=== PATIENT | female | born 1960 | race Caucasian/White ===

== ENCOUNTER → 2023-09-11 08:01 | Outpatient (REF) | payer OTHER, SELFPAY | LOC: HWRAD 08:01 | PROVIDERS: ATTENDING PHYSICIAN Nurse Practitioner | DX: Z12.31 Encounter for screening mammogram for malignant neoplasm of breast (principal); R22.9 Localized swelling, mass and lump, unspecified | CPT/HCPCS: 76882; 77063; 77067 ==

== ENCOUNTER → 2023-10-16 11:30 | Outpatient (REF) | payer OTHER, SELFPAY | LOC: MRI 3T 11:30 | PROVIDERS: ATTENDING PHYSICIAN Nurse Practitioner; FAMILY PHYSICIAN Internal Medicine | DX: R22.9 Localized swelling, mass and lump, unspecified (principal) | CPT/HCPCS: 73721 ==

== ENCOUNTER → 2024-03-16 12:01 | Outpatient (REF) | payer OTHER, SELFPAY | LOC: HWRAD 12:01 | PROVIDERS: ATTENDING PHYSICIAN Internal Medicine | DX: M25.50 Pain in unspecified joint (principal) | CPT/HCPCS: 73130 ==

== ENCOUNTER → 2024-03-27 16:19 | Outpatient (REF) | payer OTHER, SELFPAY | LOC: HWRAD 16:19 | PROVIDERS: ATTENDING PHYSICIAN Student in an Organized Health Care Education/Training Program | DX: M25.50 Pain in unspecified joint (principal); M79.89 Other specified soft tissue disorders | CPT/HCPCS: 73120 ==

== ENCOUNTER → 2024-11-17 09:08 | Outpatient (REF) | payer OTHER, SELFPAY | LOC: HWWDC 09:08 | DX: Z12.31 Encounter for screening mammogram for malignant neoplasm of breast (principal) | CPT/HCPCS: 77063; 77067 ==

== ENCOUNTER → 2025-01-08 16:41 | Outpatient (REF) | payer OTHER, SELFPAY | LOC: RAD 16:41 | PROVIDERS: ATTENDING PHYSICIAN Student in an Organized Health Care Education/Training Program | DX: E55.9 Vitamin D deficiency, unspecified (principal); I73.00 Raynaud's syndrome without gangrene; K13.0 Diseases of lips; K21.9 Gastro-esophageal reflux disease without esophagitis; M25.50 Pain in unspecified joint; M25.60 Stiffness of unspecified joint, not elsewhere classified; M79.89 Other specified soft tissue disorders; N96 Recurrent pregnancy loss; R05.3 Chronic cough; R21 Rash and other nonspecific skin eruption; R22.42 Localized swelling, mass and lump, left lower limb; R53.83 Other fatigue; R68.2 Dry mouth, unspecified; R76.89 Other specified abnormal immunological findings in serum; Z11.1 Encounter for screening for respiratory tuberculosis; Z11.59 Encounter for screening for other viral diseases | CPT/HCPCS: 71046 ==